=== PATIENT | female | born 1965 | race Caucasian/White ===

== ENCOUNTER → 2021-02-02 | Outpatient (CLI) | payer MEDICAID ==
--- NOTE | 2021-02-02 10:25 | RAD ---
EXAM: Abdomen sonogram. HISTORY: Elevated liver function laboratory values. TECHNIQUE: Sonographic imaging of the abdomen was performed. COMPARISON: None. FINDINGS: The liver is enlarged. There is hepatic steatosis. No focal hepatic lesion is seen. There i s a small amount of gallbladder debris. There is no cholecystitis or cholelithiasis. The common bile duct is dilated to a caliber of 11 mm. The kidneys are normal in size. There is mild right hydronephr osis. The spleen is normal in size. The pancreas is obscured due to bowel gas. There is aortic athero sclerosis. IMPRESSION: 1. Mild hepatomegaly and hepatic steatosis. 2. Dilated common bile duct. Correlate with biliary laboratory values. MRCP may be useful if this con cern for an occult obstructing etiology. 3. Mild right hydronephrosis, of uncertain etiology. Electronically signed by: Alison Potter MD (02/02/2021 10:23 AM) [facility]
--- NOTE | 2021-02-02 11:17 | RAD ---
PQRS Compliance Statement: One or more of the following individualized dose reduction techniques were utilized for this examinat ion: 1. Automated exposure control 2. Adjustment of the mA and/or kV according to patient size 3. Use of iterative reconstruction technique CT THORAX WO 02/02/2021 9:20 AM Indication: History of Covid. Hypoxia and shortness of air. COMPARISON: None available. TECHNIQUE: Multiple axial CT images of the chest were obtained without intravenous contrast. Coronal and sagittal reformats are provided. FINDINGS: Thyroid gland is normal. Right paratracheal lymph node measures 7.5 mm by short axis. Heart size with in normal limits. No pathologically enlarged thoracic lymph nodes. Three-vessel coronary artery vascu lar calcifications are present. Trace pericardial fluid, likely physiologic. Thoracic aorta is normal in course and caliber with moderate calcified atheromatous plaque. Thoracic esophagus is normal in a ppearance. Visualized portions of the upper abdomen appear normal with exception of moderate calcifie d atheromatous plaque. No suspicious osseous abnormality. There is no significant airspace consolidation. 3 mm solid noncalcified pulmonary nodule is identifie d within the right middle lobe (series 2, image 63). No pleural effusions, pulmonary vascular congest ion or pneumothorax. Lungs are clear. IMPRESSION: No focal airspace consolidation. 3 mm solid noncalcified pulmonary nodule in the right middle lobe. Fleischner guidelines for incident ally detected pulmonary nodules suggests no routine follow-up for low risk patients and optional CT a t 12 months for high risk patients with solid noncalcified pulmonary nodules less than 6 mm in size. Electronically signed by: Susan García MD (02/02/2021 11:15 AM) [id number]
== END ==
LOC: US 08:42
PROVIDERS: ATTEND Family Medicine
DX: R91.8 Other nonspecific abnormal finding of lung field (principal); K76.0 Fatty (change of) liver, not elsewhere classified; N13.30 Unspecified hydronephrosis; K83.8 Other specified diseases of biliary tract; I25.10 Atherosclerotic heart disease of native coronary artery without angina pectoris; Z86.16 Personal history of COVID-19
CPT/HCPCS: 71250; 76700